=== PATIENT | female | born 1965 | race Hispanic/Latino ===

== ENCOUNTER 2025-02-02 09:06 | Emergency (ER) | payer OTHER ==
[~2025-02-02] VITALS: Ht 157.5 cm; Wt 49.9 kg
[2025-02-02] MEDS: DEXAMETHASONE SOD PHOS 10 MG/1 ML VIAL IV STA (09:42)
[2025-02-02 09:43] LABS: BASOPHILS % 0.4 % (0.0-1.0); EOSINOPHILS % 2.8 % (0.0-6.0); LYMPHOCYTES % 7.6 % (18.0-39.1); MONOCYTES % 4.2 % (4.4-11.3); NEUTROPHILS % 84.6 % (38.7-80.0); RED CELL DISTRIBUTION WIDTH 14.4 % (11.7-14.4)
[2025-02-02] MEDS: ALBUTEROL SULF 0.083% NEB SOLN 3 ML NEB NEB STA (09:56)
[2025-02-02] MEDS: IPRATROPIUM BROMIDE 0.02% 2.5 ML NEB NEB ONE (09:56)
[2025-02-02 09:57] VITALS: PULSE 88; RESP 21; O2SAT 99
[2025-02-02 10:00] LABS: CORONAVIRUS COVID-19 AG NEGATIVE (NEGATIVE); INFLUENZA A NAA NEGATIVE (NEGATIVE); INFLUENZA B NAA NEGATIVE (NEGATIVE)
[2025-02-02 10:06] LABS: EST GLOMERULAR FILTRATION RATE 100.0 ML/MIN (>=60)
[2025-02-02 10:11] VITALS: PULSE 118; RESP 22
[2025-02-02] MEDS: SODIUM CHLORIDE 0.9% 1000ML 1,000 ML IV SCH (10:36)
[2025-02-02] MEDS ORDERED: DOXYCYCLINE HY100 MG PO (10:58)
[2025-02-02] MEDS ORDERED: VENTOLIN HFA18 GM INH (11:00)
[2025-02-02 11:34] VITALS: PULSE 114; RESP 16; TEMP 98.1; O2SAT 94
== END 2025-02-02 12:00 | disposition home or self-care (01) ==
LOC: ER 09:10
DX: R06.02 Shortness of breath (principal); J44.1 Chronic obstructive pulmonary disease with (acute) exacerbation; R05.9 Cough, unspecified; F17.210 Nicotine dependence, cigarettes, uncomplicated
CPT/HCPCS: 36415; 71045; 80053; 84484; 85025; 85379; 87426; 93005; 94640; 94799; 99284; J1100; J7030